=== PATIENT | male | born 2005 | race Caucasian/White ===

== ENCOUNTER 2024-12-07 20:00 | Emergency (ER) | payer MEDICAID, OTHER ==
[~2024-12-07] VITALS: Ht 175.3 cm; Wt 95.3 kg
[2024-12-07] MEDS ORDERED: IBUPROFEN 400 MG TABLET PO ONE (23:00)
[2024-12-08 01:27] VITALS: BP 140/70; TEMP 99.5; O2SAT 99
== END 2024-12-07 23:30 | disposition home or self-care (01) ==
LOC: EDSEX 20:34 → ER 20:34
DX: S13.4XXA Sprain of ligaments of cervical spine, initial encounter (principal); S09.90XA Unspecified injury of head, initial encounter; V89.2XXA Person injured in unspecified motor-vehicle accident, traffic, initial encounter; Y93.89 Activity, other specified; Y92.415 Exit ramp or entrance ramp of street or highway as the place of occurrence of the external cause; Y99.8 Other external cause status
CPT/HCPCS: 70450-TC; 72125-TC